=== PATIENT | female | born 1940 | race Caucasian/White ===

== ENCOUNTER → 2016-05-27 | Outpatient (CLI) | payer MEDICARE ==
[~2016-05-27] MED LIST: APIX2.5T PO; APIX5TAB PO; CHOL20002 PO; DILT90TA PO; ESCI10TA PO; HYDR-3138 PO; HYDR12.53 PO; LEVO50TA PO; METO25TA35 PO; VITA400C40 PO
== END | disposition home or self-care (01) ==
LOC: WOUND 11:00
PROVIDERS: ATTEND Internal Medicine
DX: S01.82XD Laceration with foreign body of other part of head, subsequent encounter (principal); M87.180 Osteonecrosis due to drugs, jaw; M81.8 Other osteoporosis without current pathological fracture; I10 Essential (primary) hypertension; E03.9 Hypothyroidism, unspecified; I48.91 Unspecified atrial fibrillation; M81.0 Age-related osteoporosis without current pathological fracture; Z95.0 Presence of cardiac pacemaker; F17.210 Nicotine dependence, cigarettes, uncomplicated; Z72.89 Other problems related to lifestyle; X58.XXXD Exposure to other specified factors, subsequent encounter; Y92.9 Unspecified place or not applicable; Y99.9 Unspecified external cause status
CPT/HCPCS: 97597

== ENCOUNTER → 2016-06-24 | Outpatient (CLI) | payer MEDICARE | END | disposition home or self-care (01) | LOC: WOUND 08:35 | PROVIDERS: ATTEND Internal Medicine | DX: M27.2 Inflammatory conditions of jaws (principal); M81.8 Other osteoporosis without current pathological fracture; M87.9 Osteonecrosis, unspecified; E03.9 Hypothyroidism, unspecified; I48.91 Unspecified atrial fibrillation; I10 Essential (primary) hypertension; Z95.0 Presence of cardiac pacemaker; Z72.89 Other problems related to lifestyle; F17.210 Nicotine dependence, cigarettes, uncomplicated | CPT/HCPCS: 17250 ==

== ENCOUNTER → 2016-07-02 | Outpatient (CLI) | payer MEDICARE | END | disposition home or self-care (01) | LOC: CFH 09:23 | PROVIDERS: ATTEND Family Medicine | DX: Z12.31 Encounter for screening mammogram for malignant neoplasm of breast (principal); M81.0 Age-related osteoporosis without current pathological fracture | CPT/HCPCS: G0202 ==

== ENCOUNTER → 2016-07-15 | Outpatient (CLI) | payer MEDICARE | END | disposition home or self-care (01) | LOC: WOUND 10:07 | PROVIDERS: ATTEND Internal Medicine | DX: S01.82XD Laceration with foreign body of other part of head, subsequent encounter (principal); M87.180 Osteonecrosis due to drugs, jaw; M27.2 Inflammatory conditions of jaws; M81.8 Other osteoporosis without current pathological fracture; I10 Essential (primary) hypertension; E03.8 Other specified hypothyroidism; I48.91 Unspecified atrial fibrillation; F17.210 Nicotine dependence, cigarettes, uncomplicated; Z85.3 Personal history of malignant neoplasm of breast; Z72.89 Other problems related to lifestyle; Z95.0 Presence of cardiac pacemaker; X58.XXXD Exposure to other specified factors, subsequent encounter; Y92.9 Unspecified place or not applicable; Y99.9 Unspecified external cause status | CPT/HCPCS: 97597 ==

== ENCOUNTER → 2016-07-22 | Outpatient (CLI) | payer MEDICARE | END | disposition home or self-care (01) | LOC: WOUND 10:00 | PROVIDERS: ATTEND Nurse Practitioner Family | DX: M87.180 Osteonecrosis due to drugs, jaw (principal); M81.8 Other osteoporosis without current pathological fracture; M27.2 Inflammatory conditions of jaws; I10 Essential (primary) hypertension; E03.9 Hypothyroidism, unspecified; I48.91 Unspecified atrial fibrillation; M81.0 Age-related osteoporosis without current pathological fracture; F17.210 Nicotine dependence, cigarettes, uncomplicated; Z72.89 Other problems related to lifestyle; Z95.0 Presence of cardiac pacemaker; Z85.3 Personal history of malignant neoplasm of breast | CPT/HCPCS: 17250 ==

== ENCOUNTER → 2016-07-29 | Outpatient (CLI) | payer MEDICARE | END | disposition home or self-care (01) | LOC: WOUND 10:10 | PROVIDERS: ATTEND Internal Medicine | DX: S01.82XD Laceration with foreign body of other part of head, subsequent encounter (principal); M87.180 Osteonecrosis due to drugs, jaw; M81.8 Other osteoporosis without current pathological fracture; M27.2 Inflammatory conditions of jaws; E03.9 Hypothyroidism, unspecified; I48.91 Unspecified atrial fibrillation; I10 Essential (primary) hypertension; Z85.3 Personal history of malignant neoplasm of breast; F17.210 Nicotine dependence, cigarettes, uncomplicated; Z72.89 Other problems related to lifestyle; X58.XXXD Exposure to other specified factors, subsequent encounter; Y92.89 Other specified places as the place of occurrence of the external cause; Y99.8 Other external cause status | CPT/HCPCS: 97597 ==

== ENCOUNTER → 2016-08-05 | Outpatient (CLI) | payer MEDICARE | END | disposition home or self-care (01) | LOC: WOUND 10:10 | PROVIDERS: ATTEND Internal Medicine | DX: M87.180 Osteonecrosis due to drugs, jaw (principal); S01.80XD Unspecified open wound of other part of head, subsequent encounter; M81.8 Other osteoporosis without current pathological fracture; I48.91 Unspecified atrial fibrillation; E03.9 Hypothyroidism, unspecified; I10 Essential (primary) hypertension; Z85.3 Personal history of malignant neoplasm of breast; Z95.0 Presence of cardiac pacemaker; F17.210 Nicotine dependence, cigarettes, uncomplicated; Z72.89 Other problems related to lifestyle; X58.XXXD Exposure to other specified factors, subsequent encounter | CPT/HCPCS: 97597 ==

== ENCOUNTER → 2016-08-12 | Outpatient (CLI) | payer MEDICARE | END | disposition home or self-care (01) | LOC: WOUND 10:47 | PROVIDERS: ATTEND Internal Medicine | DX: S01.82XD Laceration with foreign body of other part of head, subsequent encounter (principal); M87.180 Osteonecrosis due to drugs, jaw; M81.8 Other osteoporosis without current pathological fracture; M27.2 Inflammatory conditions of jaws; I48.91 Unspecified atrial fibrillation; E03.9 Hypothyroidism, unspecified; I10 Essential (primary) hypertension; Z85.3 Personal history of malignant neoplasm of breast; Z95.0 Presence of cardiac pacemaker; F17.210 Nicotine dependence, cigarettes, uncomplicated; Z72.89 Other problems related to lifestyle; X58.XXXD Exposure to other specified factors, subsequent encounter; Y92.89 Other specified places as the place of occurrence of the external cause; Y99.8 Other external cause status | CPT/HCPCS: 97597 ==

== ENCOUNTER → 2016-08-19 | Outpatient (CLI) | payer MEDICARE | END | disposition home or self-care (01) | LOC: WOUND 10:25 | PROVIDERS: ATTEND Internal Medicine | DX: S01.82XD Laceration with foreign body of other part of head, subsequent encounter (principal); M87.180 Osteonecrosis due to drugs, jaw; T45.8X5D Adverse effect of other primarily systemic and hematological agents, subsequent encounter; M81.8 Other osteoporosis without current pathological fracture; M27.2 Inflammatory conditions of jaws; I10 Essential (primary) hypertension; E03.9 Hypothyroidism, unspecified; I48.91 Unspecified atrial fibrillation; M81.0 Age-related osteoporosis without current pathological fracture; F17.210 Nicotine dependence, cigarettes, uncomplicated; Z95.0 Presence of cardiac pacemaker; Z72.89 Other problems related to lifestyle; Z85.3 Personal history of malignant neoplasm of breast; X58.XXXD Exposure to other specified factors, subsequent encounter; Y92.9 Unspecified place or not applicable | CPT/HCPCS: 97597 ==

== ENCOUNTER → 2016-08-27 | Outpatient (CLI) | payer MEDICARE | END | disposition home or self-care (01) | LOC: WOUND 10:05 | PROVIDERS: ATTEND Internal Medicine | DX: S01.82XD Laceration with foreign body of other part of head, subsequent encounter (principal); M27.2 Inflammatory conditions of jaws; M81.8 Other osteoporosis without current pathological fracture; M81.0 Age-related osteoporosis without current pathological fracture; I10 Essential (primary) hypertension; E03.9 Hypothyroidism, unspecified; I48.91 Unspecified atrial fibrillation; Z95.0 Presence of cardiac pacemaker; F17.210 Nicotine dependence, cigarettes, uncomplicated; X58.XXXD Exposure to other specified factors, subsequent encounter; Y99.8 Other external cause status; Y92.89 Other specified places as the place of occurrence of the external cause; Z72.89 Other problems related to lifestyle | CPT/HCPCS: 17250; 97597 ==

== ENCOUNTER → 2016-09-03 | Outpatient (CLI) | payer MEDICARE | END | disposition home or self-care (01) | LOC: WOUND 10:00 | PROVIDERS: ATTEND Internal Medicine | DX: S01.82XD Laceration with foreign body of other part of head, subsequent encounter (principal); M87.180 Osteonecrosis due to drugs, jaw; M81.8 Other osteoporosis without current pathological fracture; M27.2 Inflammatory conditions of jaws; I10 Essential (primary) hypertension; E03.9 Hypothyroidism, unspecified; I48.91 Unspecified atrial fibrillation; Z95.0 Presence of cardiac pacemaker; M81.0 Age-related osteoporosis without current pathological fracture; F17.210 Nicotine dependence, cigarettes, uncomplicated; Z72.89 Other problems related to lifestyle; X58.XXXD Exposure to other specified factors, subsequent encounter; Y92.89 Other specified places as the place of occurrence of the external cause; Y99.8 Other external cause status | CPT/HCPCS: 97597 ==

== ENCOUNTER → 2016-09-10 | Outpatient (CLI) | payer MEDICARE | END | disposition home or self-care (01) | LOC: WOUND 10:00 | PROVIDERS: ATTEND Internal Medicine | DX: M87.180 Osteonecrosis due to drugs, jaw (principal); M81.8 Other osteoporosis without current pathological fracture; I10 Essential (primary) hypertension; E03.9 Hypothyroidism, unspecified; I48.91 Unspecified atrial fibrillation; F17.210 Nicotine dependence, cigarettes, uncomplicated; Z85.3 Personal history of malignant neoplasm of breast; Z95.0 Presence of cardiac pacemaker; Z72.89 Other problems related to lifestyle | CPT/HCPCS: 15275; Q4132 ==

== ENCOUNTER → 2016-09-17 | Outpatient (CLI) | payer MEDICARE | END | disposition home or self-care (01) | LOC: WOUND 10:09 | PROVIDERS: ATTEND Internal Medicine | DX: S01.82XD Laceration with foreign body of other part of head, subsequent encounter (principal); M87.180 Osteonecrosis due to drugs, jaw; M27.2 Inflammatory conditions of jaws; M81.8 Other osteoporosis without current pathological fracture; I10 Essential (primary) hypertension; E03.9 Hypothyroidism, unspecified; I48.91 Unspecified atrial fibrillation; Y99.8 Other external cause status; Z72.89 Other problems related to lifestyle; Z95.0 Presence of cardiac pacemaker; X58.XXXD Exposure to other specified factors, subsequent encounter; Y92.89 Other specified places as the place of occurrence of the external cause; F17.210 Nicotine dependence, cigarettes, uncomplicated; Z85.3 Personal history of malignant neoplasm of breast | CPT/HCPCS: 15275; 97597; Q4132 ==

== ENCOUNTER → 2016-09-24 | Outpatient (CLI) | payer MEDICARE ==
[~2016-09-24] MED LIST changes: -VITA400C40 PO; +VITA400C43 PO
== END | disposition home or self-care (01) ==
LOC: WOUND 10:21
PROVIDERS: ATTEND Internal Medicine
DX: S01.80XD Unspecified open wound of other part of head, subsequent encounter (principal); M87.180 Osteonecrosis due to drugs, jaw; M81.8 Other osteoporosis without current pathological fracture; I10 Essential (primary) hypertension; E03.9 Hypothyroidism, unspecified; I48.91 Unspecified atrial fibrillation; F17.210 Nicotine dependence, cigarettes, uncomplicated; Z72.89 Other problems related to lifestyle; M27.2 Inflammatory conditions of jaws; Z95.0 Presence of cardiac pacemaker; X58.XXXD Exposure to other specified factors, subsequent encounter
CPT/HCPCS: 15275; 97597; Q4132

== ENCOUNTER → 2016-10-01 | Outpatient (CLI) | payer MEDICARE | END | disposition home or self-care (01) | LOC: WOUND 10:00 | PROVIDERS: ATTEND Internal Medicine | DX: S01.82XD Laceration with foreign body of other part of head, subsequent encounter (principal); M87.180 Osteonecrosis due to drugs, jaw; M81.8 Other osteoporosis without current pathological fracture; M27.2 Inflammatory conditions of jaws; I10 Essential (primary) hypertension; E03.9 Hypothyroidism, unspecified; I48.91 Unspecified atrial fibrillation; M81.0 Age-related osteoporosis without current pathological fracture; F17.210 Nicotine dependence, cigarettes, uncomplicated; Z72.89 Other problems related to lifestyle; Z95.0 Presence of cardiac pacemaker; X58.XXXD Exposure to other specified factors, subsequent encounter | CPT/HCPCS: 97597 ==

== ENCOUNTER → 2016-10-08 | Outpatient (CLI) | payer MEDICARE | END | disposition home or self-care (01) | LOC: WOUND 14:58 | PROVIDERS: ATTEND Internal Medicine | DX: M87.180 Osteonecrosis due to drugs, jaw (principal); M81.8 Other osteoporosis without current pathological fracture; M27.2 Inflammatory conditions of jaws; I10 Essential (primary) hypertension; E03.9 Hypothyroidism, unspecified; I48.91 Unspecified atrial fibrillation; M81.0 Age-related osteoporosis without current pathological fracture; F17.210 Nicotine dependence, cigarettes, uncomplicated; Z72.89 Other problems related to lifestyle; Z95.0 Presence of cardiac pacemaker; Z85.3 Personal history of malignant neoplasm of breast | CPT/HCPCS: 15275; Q4132 ==

== ENCOUNTER → 2016-10-15 | Outpatient (CLI) | payer MEDICARE | END | disposition home or self-care (01) | LOC: WOUND 10:04 | PROVIDERS: ATTEND Internal Medicine | DX: S01.82XD Laceration with foreign body of other part of head, subsequent encounter (principal); M87.180 Osteonecrosis due to drugs, jaw; M81.8 Other osteoporosis without current pathological fracture; M27.2 Inflammatory conditions of jaws; I10 Essential (primary) hypertension; E03.9 Hypothyroidism, unspecified; I48.91 Unspecified atrial fibrillation; Z95.0 Presence of cardiac pacemaker; F17.210 Nicotine dependence, cigarettes, uncomplicated; Z72.89 Other problems related to lifestyle; X58.XXXD Exposure to other specified factors, subsequent encounter; Y92.89 Other specified places as the place of occurrence of the external cause; Y99.8 Other external cause status | CPT/HCPCS: 15275; 97597; Q4132 ==

== ENCOUNTER → 2016-10-29 | Outpatient (CLI) | payer MEDICARE | END | disposition home or self-care (01) | LOC: WOUND 10:20 | PROVIDERS: ATTEND Internal Medicine | DX: S01.82XD Laceration with foreign body of other part of head, subsequent encounter (principal); M87.180 Osteonecrosis due to drugs, jaw; M81.8 Other osteoporosis without current pathological fracture; M27.2 Inflammatory conditions of jaws; I10 Essential (primary) hypertension; E03.9 Hypothyroidism, unspecified; I48.91 Unspecified atrial fibrillation; Z95.0 Presence of cardiac pacemaker; Z85.3 Personal history of malignant neoplasm of breast; F17.210 Nicotine dependence, cigarettes, uncomplicated; X58.XXXD Exposure to other specified factors, subsequent encounter; Y92.89 Other specified places as the place of occurrence of the external cause; Y99.8 Other external cause status; Z72.89 Other problems related to lifestyle | CPT/HCPCS: 15275; 97597; Q4132 ==

== ENCOUNTER → 2016-11-05 | Outpatient (CLI) | payer MEDICARE | END | disposition home or self-care (01) | LOC: WOUND 10:01 | PROVIDERS: ATTEND Internal Medicine Cardiovascular Disease | DX: S01.82XD Laceration with foreign body of other part of head, subsequent encounter (principal); M87.180 Osteonecrosis due to drugs, jaw; M81.8 Other osteoporosis without current pathological fracture; M27.2 Inflammatory conditions of jaws; I10 Essential (primary) hypertension; E03.9 Hypothyroidism, unspecified; F17.210 Nicotine dependence, cigarettes, uncomplicated; Z72.89 Other problems related to lifestyle; Z85.3 Personal history of malignant neoplasm of breast; Z95.0 Presence of cardiac pacemaker; I48.91 Unspecified atrial fibrillation; X58.XXXD Exposure to other specified factors, subsequent encounter; Y92.89 Other specified places as the place of occurrence of the external cause; Y99.8 Other external cause status | CPT/HCPCS: G0463; WOU0463 ==

== ENCOUNTER → 2016-11-12 | Outpatient (CLI) | payer MEDICARE ==
[~2016-11-12] MED LIST changes: -HYDR-3138 PO; +HYDR-3237 PO
== END | disposition home or self-care (01) ==
LOC: WOUND 10:00
PROVIDERS: ATTEND Internal Medicine
DX: M87.180 Osteonecrosis due to drugs, jaw (principal); S01.80XD Unspecified open wound of other part of head, subsequent encounter; M81.8 Other osteoporosis without current pathological fracture; M27.2 Inflammatory conditions of jaws; E03.9 Hypothyroidism, unspecified; I48.91 Unspecified atrial fibrillation; I10 Essential (primary) hypertension; F17.210 Nicotine dependence, cigarettes, uncomplicated; Z95.0 Presence of cardiac pacemaker; Z72.89 Other problems related to lifestyle; X58.XXXD Exposure to other specified factors, subsequent encounter
CPT/HCPCS: 15275; 97597; Q4132

== ENCOUNTER → 2016-11-19 | Outpatient (CLI) | payer MEDICARE | END | disposition home or self-care (01) | LOC: WOUND 10:01 | PROVIDERS: ATTEND Internal Medicine | DX: M27.2 Inflammatory conditions of jaws (principal); M81.8 Other osteoporosis without current pathological fracture; M87.180 Osteonecrosis due to drugs, jaw; I10 Essential (primary) hypertension; E03.9 Hypothyroidism, unspecified; I48.91 Unspecified atrial fibrillation; Z95.0 Presence of cardiac pacemaker; F17.210 Nicotine dependence, cigarettes, uncomplicated; Z72.89 Other problems related to lifestyle | CPT/HCPCS: 15275; Q4132 ==

== ENCOUNTER → 2016-11-26 | Outpatient (CLI) | payer MEDICARE | END | disposition home or self-care (01) | LOC: WOUND 10:00 | PROVIDERS: ATTEND Internal Medicine | DX: M27.2 Inflammatory conditions of jaws (principal); S01.80XD Unspecified open wound of other part of head, subsequent encounter; M87.180 Osteonecrosis due to drugs, jaw; M81.8 Other osteoporosis without current pathological fracture; I10 Essential (primary) hypertension; E03.9 Hypothyroidism, unspecified; I48.91 Unspecified atrial fibrillation; F17.210 Nicotine dependence, cigarettes, uncomplicated; Z95.0 Presence of cardiac pacemaker; Z72.89 Other problems related to lifestyle; Z85.3 Personal history of malignant neoplasm of breast; X58.XXXD Exposure to other specified factors, subsequent encounter | CPT/HCPCS: 15275; 97597; Q4132 ==

== ENCOUNTER → 2016-12-05 | Outpatient (CLI) | payer MEDICARE | END | disposition home or self-care (01) | LOC: WOUND 10:38 | PROVIDERS: ATTEND Internal Medicine | DX: M87.180 Osteonecrosis due to drugs, jaw (principal); M81.8 Other osteoporosis without current pathological fracture; M27.2 Inflammatory conditions of jaws; M24.80 Other specific joint derangements of unspecified joint, not elsewhere classified; S01.82XD Laceration with foreign body of other part of head, subsequent encounter; I10 Essential (primary) hypertension; E03.9 Hypothyroidism, unspecified; F17.210 Nicotine dependence, cigarettes, uncomplicated; Z85.3 Personal history of malignant neoplasm of breast; I48.91 Unspecified atrial fibrillation; Z95.0 Presence of cardiac pacemaker; X58.XXXD Exposure to other specified factors, subsequent encounter; Y92.89 Other specified places as the place of occurrence of the external cause; Y99.8 Other external cause status | CPT/HCPCS: 15275; 97597; Q4132 ==

== ENCOUNTER → 2016-12-10 | Outpatient (CLI) | payer MEDICARE | END | disposition home or self-care (01) | LOC: WOUND 10:30 | PROVIDERS: ATTEND Internal Medicine | DX: S01.80XD Unspecified open wound of other part of head, subsequent encounter (principal); M27.2 Inflammatory conditions of jaws; M87.180 Osteonecrosis due to drugs, jaw; M81.8 Other osteoporosis without current pathological fracture; I10 Essential (primary) hypertension; E03.9 Hypothyroidism, unspecified; I48.91 Unspecified atrial fibrillation; F17.210 Nicotine dependence, cigarettes, uncomplicated; Z95.0 Presence of cardiac pacemaker; Z72.89 Other problems related to lifestyle; X58.XXXD Exposure to other specified factors, subsequent encounter | CPT/HCPCS: 97597 ==

== ENCOUNTER → 2016-12-24 | Outpatient (CLI) | payer MEDICARE | END | disposition home or self-care (01) | LOC: WOUND 10:30 | PROVIDERS: ATTEND Internal Medicine | DX: S01.80XD Unspecified open wound of other part of head, subsequent encounter (principal); M87.180 Osteonecrosis due to drugs, jaw; I10 Essential (primary) hypertension; E03.9 Hypothyroidism, unspecified; I48.91 Unspecified atrial fibrillation; Z85.3 Personal history of malignant neoplasm of breast; F17.210 Nicotine dependence, cigarettes, uncomplicated; Z72.89 Other problems related to lifestyle; Z95.0 Presence of cardiac pacemaker; X58.XXXD Exposure to other specified factors, subsequent encounter | CPT/HCPCS: 97597 ==

== ENCOUNTER → 2017-01-06 | Outpatient (CLI) | payer MEDICARE | END | disposition home or self-care (01) | LOC: WOUND 10:04 | PROVIDERS: ATTEND Internal Medicine | DX: M87.180 Osteonecrosis due to drugs, jaw (principal); M81.8 Other osteoporosis without current pathological fracture; M27.2 Inflammatory conditions of jaws; I10 Essential (primary) hypertension; E03.9 Hypothyroidism, unspecified; I48.91 Unspecified atrial fibrillation; M81.0 Age-related osteoporosis without current pathological fracture; F17.210 Nicotine dependence, cigarettes, uncomplicated; Z72.89 Other problems related to lifestyle; Z95.0 Presence of cardiac pacemaker; Z85.3 Personal history of malignant neoplasm of breast | CPT/HCPCS: G0463; WOU0463 ==

== ENCOUNTER → 2017-01-20 | Outpatient (CLI) | payer MEDICARE | END | disposition home or self-care (01) | LOC: WOUND 10:38 | PROVIDERS: ATTEND Internal Medicine | DX: S01.80XD Unspecified open wound of other part of head, subsequent encounter (principal); M87.180 Osteonecrosis due to drugs, jaw; M81.0 Age-related osteoporosis without current pathological fracture; I10 Essential (primary) hypertension; E03.9 Hypothyroidism, unspecified; I48.91 Unspecified atrial fibrillation; Z95.0 Presence of cardiac pacemaker; Z85.3 Personal history of malignant neoplasm of breast; F17.210 Nicotine dependence, cigarettes, uncomplicated; Z72.89 Other problems related to lifestyle; X58.XXXD Exposure to other specified factors, subsequent encounter | CPT/HCPCS: 97597 ==

== ENCOUNTER → 2017-05-20 | Outpatient (CLI) | payer MEDICARE | END | disposition home or self-care (01) | LOC: WOUND 10:29 | PROVIDERS: ATTEND Internal Medicine | DX: S01.80XD Unspecified open wound of other part of head, subsequent encounter (principal); M87.180 Osteonecrosis due to drugs, jaw; M81.0 Age-related osteoporosis without current pathological fracture; I10 Essential (primary) hypertension; E03.9 Hypothyroidism, unspecified; I48.91 Unspecified atrial fibrillation; F17.210 Nicotine dependence, cigarettes, uncomplicated; Z85.3 Personal history of malignant neoplasm of breast; Z72.89 Other problems related to lifestyle; Z95.0 Presence of cardiac pacemaker | CPT/HCPCS: 97597; 99215 ==

== ENCOUNTER → 2017-06-03 | Outpatient (CLI) | payer MEDICARE | END | disposition home or self-care (01) | LOC: WOUND 10:28 | PROVIDERS: ATTEND Internal Medicine | DX: S01.80XD Unspecified open wound of other part of head, subsequent encounter (principal); M87.180 Osteonecrosis due to drugs, jaw; M27.2 Inflammatory conditions of jaws; M81.8 Other osteoporosis without current pathological fracture; I10 Essential (primary) hypertension; E03.9 Hypothyroidism, unspecified; I48.91 Unspecified atrial fibrillation; F17.210 Nicotine dependence, cigarettes, uncomplicated; Z95.0 Presence of cardiac pacemaker; Z72.89 Other problems related to lifestyle; X58.XXXD Exposure to other specified factors, subsequent encounter | CPT/HCPCS: 97597 ==

== ENCOUNTER → 2017-07-08 | Outpatient (CLI) | payer MEDICARE | END | disposition home or self-care (01) | LOC: WOUND 13:31 | PROVIDERS: ATTEND Internal Medicine | DX: S01.80XD Unspecified open wound of other part of head, subsequent encounter (principal); M87.180 Osteonecrosis due to drugs, jaw; M27.2 Inflammatory conditions of jaws; E03.9 Hypothyroidism, unspecified; I10 Essential (primary) hypertension; I48.91 Unspecified atrial fibrillation; M81.0 Age-related osteoporosis without current pathological fracture; F17.210 Nicotine dependence, cigarettes, uncomplicated; Z95.0 Presence of cardiac pacemaker; Z85.3 Personal history of malignant neoplasm of breast; X58.XXXD Exposure to other specified factors, subsequent encounter; Y63.2 Overdose of radiation given during therapy; Y78.1 Therapeutic (nonsurgical) and rehabilitative radiological devices associated with adverse incidents | CPT/HCPCS: 11044 ==

== ENCOUNTER → 2017-08-05 | Outpatient (CLI) | payer MEDICARE | END | disposition home or self-care (01) | LOC: WOUND 10:08 | PROVIDERS: ATTEND Family Medicine | DX: L59.8 Other specified disorders of the skin and subcutaneous tissue related to radiation (principal); M27.2 Inflammatory conditions of jaws; S01.83XA Puncture wound without foreign body of other part of head, initial encounter; M87.180 Osteonecrosis due to drugs, jaw; M24.80 Other specific joint derangements of unspecified joint, not elsewhere classified; E03.9 Hypothyroidism, unspecified; E05.00 Thyrotoxicosis with diffuse goiter without thyrotoxic crisis or storm; I10 Essential (primary) hypertension; I48.91 Unspecified atrial fibrillation; M81.0 Age-related osteoporosis without current pathological fracture; F17.210 Nicotine dependence, cigarettes, uncomplicated; Z95.0 Presence of cardiac pacemaker; Z85.3 Personal history of malignant neoplasm of breast; X58.XXXA Exposure to other specified factors, initial encounter; Y93.89 Activity, other specified; Y92.89 Other specified places as the place of occurrence of the external cause; Y99.8 Other external cause status; Y63.2 Overdose of radiation given during therapy; Y78.1 Therapeutic (nonsurgical) and rehabilitative radiological devices associated with adverse incidents | CPT/HCPCS: 97597 ==

== ENCOUNTER → 2017-09-02 | Outpatient (CLI) | payer MEDICARE | END | disposition home or self-care (01) | LOC: WOUND 09:00 | PROVIDERS: ATTEND Internal Medicine | DX: L59.8 Other specified disorders of the skin and subcutaneous tissue related to radiation (principal); S01.83XA Puncture wound without foreign body of other part of head, initial encounter; M27.2 Inflammatory conditions of jaws; M87.180 Osteonecrosis due to drugs, jaw; M24.80 Other specific joint derangements of unspecified joint, not elsewhere classified; E03.9 Hypothyroidism, unspecified; E05.00 Thyrotoxicosis with diffuse goiter without thyrotoxic crisis or storm; I10 Essential (primary) hypertension; I48.91 Unspecified atrial fibrillation; M81.0 Age-related osteoporosis without current pathological fracture; F17.210 Nicotine dependence, cigarettes, uncomplicated; Z95.0 Presence of cardiac pacemaker; Z85.3 Personal history of malignant neoplasm of breast; X58.XXXA Exposure to other specified factors, initial encounter; Y93.89 Activity, other specified; Y92.89 Other specified places as the place of occurrence of the external cause; Y99.8 Other external cause status; Y63.2 Overdose of radiation given during therapy; Y78.1 Therapeutic (nonsurgical) and rehabilitative radiological devices associated with adverse incidents | CPT/HCPCS: 97597 ==

== ENCOUNTER → 2017-09-28 | Outpatient (CLI) | payer MEDICARE | END | disposition home or self-care (01) | LOC: WOUND 09:29 | PROVIDERS: ATTEND Internal Medicine | DX: S01.83XD Puncture wound without foreign body of other part of head, subsequent encounter (principal); M87.180 Osteonecrosis due to drugs, jaw; M81.8 Other osteoporosis without current pathological fracture; M27.2 Inflammatory conditions of jaws; M24.80 Other specific joint derangements of unspecified joint, not elsewhere classified; I10 Essential (primary) hypertension; E03.9 Hypothyroidism, unspecified; I48.91 Unspecified atrial fibrillation; F17.210 Nicotine dependence, cigarettes, uncomplicated; Z85.3 Personal history of malignant neoplasm of breast; Z95.0 Presence of cardiac pacemaker; X58.XXXD Exposure to other specified factors, subsequent encounter | CPT/HCPCS: 11042; 11044; 97597 ==

== ENCOUNTER → 2017-11-02 | Outpatient (CLI) | payer MEDICARE | END | disposition home or self-care (01) | LOC: WOUND 09:33 | PROVIDERS: ATTEND Internal Medicine | DX: S01.83XD Puncture wound without foreign body of other part of head, subsequent encounter (principal); M81.8 Other osteoporosis without current pathological fracture; M27.2 Inflammatory conditions of jaws; M24.80 Other specific joint derangements of unspecified joint, not elsewhere classified; I10 Essential (primary) hypertension; E03.9 Hypothyroidism, unspecified; I48.91 Unspecified atrial fibrillation; F17.210 Nicotine dependence, cigarettes, uncomplicated; Z85.3 Personal history of malignant neoplasm of breast; Z95.0 Presence of cardiac pacemaker; X58.XXXD Exposure to other specified factors, subsequent encounter | CPT/HCPCS: 97597 ==

== ENCOUNTER → 2018-01-11 | Outpatient (CLI) | payer MEDICARE ==
[~2018-01-11] MED LIST changes: -CHOL20002 PO; +CHOL200052 PO
== END | disposition home or self-care (01) ==
LOC: WOUND 10:04
PROVIDERS: ATTEND Internal Medicine
DX: S01.83XD Puncture wound without foreign body of other part of head, subsequent encounter (principal); M27.2 Inflammatory conditions of jaws; M81.8 Other osteoporosis without current pathological fracture; M24.80 Other specific joint derangements of unspecified joint, not elsewhere classified; I10 Essential (primary) hypertension; E03.9 Hypothyroidism, unspecified; I48.91 Unspecified atrial fibrillation; F17.210 Nicotine dependence, cigarettes, uncomplicated; Z85.3 Personal history of malignant neoplasm of breast; Z95.0 Presence of cardiac pacemaker; X58.XXXD Exposure to other specified factors, subsequent encounter
CPT/HCPCS: 97597

== ENCOUNTER 2018-11-05 13:35 | Outpatient (CLI) | payer MEDICARE | END 2018-11-05 23:59 | disposition home or self-care (01) | LOC: CFH 13:35 | PROVIDERS: ATTEND Internal Medicine Infectious Disease | DX: M95.2 Other acquired deformity of head (principal) | CPT/HCPCS: 70487; Q9967 ==